=== PATIENT | female | born 2000 | race Two or more races ===

== ENCOUNTER 2024-06-17 11:47 | Emergency (ER) | payer OTHER ==
[~2024-06-17] VITALS: Ht 167.6 cm; Wt 95.3 kg
[2024-06-17 12:16] VITALS: BP 134/82; O2SAT 99
[2024-06-17] MEDS ORDERED: SERTRALINE20 MG/1 ML (12:17)
[2024-06-17] MEDS ORDERED: TOPAMAX50 MG (12:17)
[2024-06-17] MEDS ORDERED: ONDANSETRON HCL 2 MG/ML VIAL IM ONE (13:30)
[2024-06-17] MEDS ORDERED: FAMOtidine 10 MG/ML (4ML VIAL) IV PUSH ONE (13:30)
[2024-06-17 13:47] LABS: HEMATOCRIT 35.6 % (36.0-45.00); HEMOGLOBIN 11.5 g/dL (12.0-15.00); MEAN CORPUSCULAR HEMOGLOBIN 25.5 pg (27.00-32.0); MEAN CORPUSCULAR HGB CONC 32.3 g/dl (32.0-36.0); PLATELET COUNT 303 K/uL (150-450); RED BLOOD COUNT 4.51 M/uL (4.00-6.00); RED CELL DISTRIBUTION WIDTH 15.2 % (11.5-14.5)
[2024-06-17] MEDS ORDERED: PEPCID AC20 MG PO (14:46)
[2024-06-17] MEDS ORDERED: ZITHROMAX TRI-500 MG PO (14:46)
== END 2024-06-17 14:51 | disposition home or self-care (01) ==
LOC: ER 11:49
PROVIDERS: General Practice
DX: J00 Acute nasopharyngitis [common cold] (principal); Z91.013 Allergy to seafood; Z91.018 Allergy to other foods; Z20.822 Contact with and (suspected) exposure to COVID-19